=== PATIENT | female | born 1945 | race Caucasian/White ===

== ENCOUNTER 2017-02-23 16:07 | Emergency (ER) | payer MEDICARE ==
[~2017-02-23] VITALS: Ht 162.6 cm; Wt 65.9 kg
[~2017-02-23 16:07] MED LIST: ASPIRIN EC81 MG PO; ATENOLOL50 MG PO; B-1250 MCG PO; CENTRUM SILVER ULTRA PO; LISINOPRIL10 MG PO; LORTAB 7.5 PO; OMEGA-31000 MG PO; OMEPRAZOLE40 MG PO; PRAVASTATIN20 MG PO; PRILOSEC40 MG PO; ROBITUSSIN200 MG/10 PO; SUPER B COMPLEX PO; SYNTHROID100 MCG PO; ZITHROMAX250 MG PO
[2017-02-23] MEDS ORDERED: TGT ASPIRIN81 MG PO (16:24)
[2017-02-23] MEDS ORDERED: ASPIRIN81 MG PO (16:34)
[2017-02-23 17:05] VITALS: BP 161/87
== END 2017-02-23 17:05 | disposition home or self-care (01) ==
LOC: ED 16:07
DX: R25.2 Cramp and spasm (principal); T67.8XXA Other effects of heat and light, initial encounter; M79.605 Pain in left leg; X30.XXXA Exposure to excessive natural heat, initial encounter; Y93.H9 Activity, other involving exterior property and land maintenance, building and construction; Y92.007 Garden or yard of unspecified non-institutional (private) residence as the place of occurrence of the external cause

== ENCOUNTER 2017-03-02 05:21 | Observation (INO) | payer MEDICARE ==
[~2017-03-02] VITALS: Ht 162.6 cm; Wt 66.5 kg
[~2017-03-02 05:21] MED LIST changes: +ASPIRIN81 MG PO; +TGT ASPIRIN81 MG PO
[2017-03-02 06:14] LABS: HEMATOCRIT 36.8 % (37.0-47.0); HEMOGLOBIN 12.7 g/dl (12.0-16.0); IMMATURE GRANULOCYTES 0.3 % (0.0-1.0); MEAN CELL VOLUME 94.6 fL CALC (80.0-100.0); MEAN CORPUSCULAR HGB 32.6 pG CALC (26.0-32.0); MEAN CORPUSCULAR HGB CONC 34.5 g/L CALC (32.0-36.0); NEUT# 3.5 thou/uL (2.00-7.15); RED BLOOD COUNT 3.89 mill/uL (4.20-5.60); RED CELL DISTRI WIDTH 12.9 % (11.5-15.5)
[2017-03-02 06:22] LABS: ALBUMIN 4.3 g/dL (3.2-5.0); ALKALINE PHOSPHATASE 60 u/l (38-126); AMYLASE 57 u/l (30-110); ANION GAP 15 (6-22 (CALC)); BILIRUBIN, TOTAL 1.4 mg/dL (0.0-1.4); BUN 13 mg/dL (8-23); BUN/CREATININE RATIO 16 (12-20 (CALC)); CALCIUM 9.4 mg/dL (8.4-10.2); CARBON DIOXIDE 27 mmol/l (22-30); CHLORIDE 107 mmol/l (95-108); CREATININE 0.8 mg/dL (0.5-1.0); GFR > 60 ML/MIN (>=60 (CALC)); GFR FOR AFR.AMER. > 60 ML/MIN (>=60 (CALC)); GLUCOSE 92 mg/dL (82-115); LIPASE 127 u/l (23-300); POTASSIUM 4.2 mmol/l (3.5-5.1); SGOT/AST 35 u/l (9-36); SGPT/ALT 35 u/l (11-66); SODIUM 144 mmol/l (137-146)
[2017-03-02 06:34] LABS: MYOGLOBIN 27 ng/mL (0 - 62)
[2017-03-02 06:53] LABS: TSH, 3RD GENERATION 2.41 uIU/mL (0.47 - 4.68)
[2017-03-02 07:29] LABS: URINE BILIRUBIN - DIPSTICK NEGATIVE (NEGATIVE); URINE BLOOD DIPSTICK MODERATE (NEGATIVE); URINE CLARITY CLEAR; URINE COLOR YELLOW; URINE GLUCOSE - DIPSTICK NEGATIVE (NEGATIVE); URINE KETONE NEGATIVE (NEGATIVE); URINE LEUK ESTERASE MODERATE (NEGATIVE); URINE NITRITE - DIPSTICK NEGATIVE (Negative); URINE PROTEIN - DIPSTICK NEGATIVE (NEG-TRACE); URINE SPECIFIC GRAVITY <=1.005; URINE UROBILINOGEN - DIPSTICK 0.2 E.U./dL (0.2)
[2017-03-02 07:45] LABS: URINE BACTERIA MODERATE hpf
[2017-03-02 07:46] LABS: URINE RBC 0-2 RBC/hpf (0-5); URINE SQUAMOUS EPITHELIAL CELL RARE EPI/hpf (0-FEW)
[2017-03-02 11:28] VITALS: BP 150/80
[2017-03-02 14:47] VITALS: BP 148/73
[2017-03-02 17:27] VITALS: BP 182/82
[2017-03-02 18:55] VITALS: BP 157/76
[2017-03-02 19:52] VITALS: BP 144/84
[2017-03-03 05:05] VITALS: BP 143/75
[2017-03-03 06:55] LABS: CHOLESTEROL HDL RATIO 5.7 (<4.4 (CALC))
[2017-03-03 07:25] VITALS: BP 145/65
[2017-03-03 09:25] VITALS: BP 145/65
[2017-03-03] MEDS ORDERED: DOCUSATE CAL240 MG PO (10:23)
[2017-03-03] MEDS ORDERED: CIPROFLOXACN500 MG PO (10:46)
== END 2017-03-03 10:45 | disposition home or self-care (01) ==
LOC: ENPENDDIS → ED 05:21 → ED-I 08:06 → ED 08:41 → MS2 08:42
PROVIDERS: Emergency Medicine; ADMIT Internal Medicine; ATTEND Internal Medicine
DX: I20.9 Angina pectoris, unspecified (principal); I10 Essential (primary) hypertension; E78.5 Hyperlipidemia, unspecified; E03.9 Hypothyroidism, unspecified; J45.909 Unspecified asthma, uncomplicated; M19.90 Unspecified osteoarthritis, unspecified site; K21.9 Gastro-esophageal reflux disease without esophagitis; R00.1 Bradycardia, unspecified; N39.0 Urinary tract infection, site not specified; B96.20 Unspecified Escherichia coli [E. coli] as the cause of diseases classified elsewhere; R10.10 Upper abdominal pain, unspecified; Z82.49 Family history of ischemic heart disease and other diseases of the circulatory system
CPT/HCPCS: G0378; J1650

== ENCOUNTER 2018-12-13 19:15 | Emergency (ER) | payer OTHER, MEDICARE, MEDICAID ==
[~2018-12-13] VITALS: Ht 162.6 cm; Wt 60.5 kg
[~2018-12-13 19:15] MED LIST changes: +CIPROFLOXACN500 MG PO; +DOCUSATE CAL240 MG PO
[2018-12-13] MEDS ORDERED: LEVOTHYROXIN75 MCG PO (20:07)
[2018-12-13] MEDS ORDERED: FLEXERIL5 MG PO (22:43)
[2018-12-13 22:50] VITALS: BP 177/82
[2018-12-13] MEDS ORDERED: ZOFRAN ODT4 MG PO (22:55)
== END 2018-12-13 22:52 | disposition home or self-care (01) | DRG 552 ==
LOC: ED 19:15
DX: S16.1XXA Strain of muscle, fascia and tendon at neck level, initial encounter (principal); S29.012A Strain of muscle and tendon of back wall of thorax, initial encounter; E03.9 Hypothyroidism, unspecified; V59.40XA Driver of pick-up truck or van injured in collision with unspecified motor vehicles in traffic accident, initial encounter